=== PATIENT | male | born 2000 | race Two or more races ===

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

== ENCOUNTER 2023-11-25 17:40 | Emergency (ER) | payer OTHER, SELFPAY ==
--- NOTE | ~2023-11-25 | CT_ITS ---
EXAMINATION: CT CERVICAL SPINE WITHOUT CONTRAST CLINICAL INFORMATION: Slipped down stairs COMPARISON: None available. TECHNIQUE: Noncontrast CT of the cervical spine was performed. Multiplanar reformations were generated and reviewed This CT examination was performed using dose optimization techniques as appropriate, variously including the following: *Automated exposure control *Adjustment of mA and/or kV according to patient size (this includes techniques or standardized protocols for targeted exams where dose is matched to indication/reason for exam; i.e. extremities or head) *Use of iterative reconstruction technique DLP: 741 mGy-cm FINDINGS: Normal vertebral body heights. No evidence of acute fracture. Cervical straightening. No significant spondylolisthesis. Normal alignment of the craniocervical junction. No suspicious lytic or sclerotic osseous lesion. Intervertebral disc spaces are maintained. No significant abnormality of visualized cervical soft tissues tissues. Lung apices are clear. Imaged intracranial compartment is unremarkable. CT/CT cervical spine wo IV con IMPRESSION: No acute fracture or traumatic malalignment of the cervical spine. Electronically signed by: Humza Owen MD 11/25/2023 07:50 PM EDT
--- NOTE | ~2023-11-25 | XR_ITS ---
EXAMINATION: XR LUMBOSACRAL SPINE CLINICAL INFORMATION: Low back pain COMPARISON: None available. TECHNIQUE: Three views of the lumbosacral spine. FINDINGS: The vertebral bodies and posterior elements are normal. The disc spaces are preserved and the vertebral alignment is normal. The paraspinal soft tissues are normal. XR/XR lumbar spine 2-3V IMPRESSION: Unremarkable examination. Electronically signed by: José Lambert DO 11/25/2023 09:10 PM EDT
--- NOTE | ~2023-11-25 | XR_ITS ---
EXAMINATION: XR KNEE, RIGHT CLINICAL INFORMATION: Trauma COMPARISON: None available. TECHNIQUE: Four views of the right knee. FINDINGS: No fracture or joint effusion. Alignment is anatomic. Joint spaces are maintained. No abnormal soft tissue calcification. XR/XR knee RT 4V IMPRESSION: Normal right knee. Electronically signed by: José Lambert DO 11/25/2023 09:09 PM EDT
[2023-11-25 18:38] VITALS: BP 136/83; PULSE 76; RESP 18; TEMP 36.6; O2SAT 98; BMI 43.3
--- NOTE | 2023-11-25 18:40 | ED_ITS ---
HPI - Fall General Chief Complaint: Back Pain/Injury Stated Complaint: back pain s/p fall Time Seen by Provider: 11/25/23 22:06 Source: patient Mode of arrival: ambulatory Limitations: no limitations History of Present Illness ED Provider: Dr. Wetzel HPI Narrative: Patient is 23 has a hx of GERD and anxiety. Tonight he slipped down the stairs carrying his bicycle. No LOC states that he has neck pain mostly on the right and right knee pain Related Data Previous Rx's ?Medication ?Instructions ?Recorded naproxen 375 mg tablet 375 mg PO BID PRN pain #14 tabs 05/17/20 ondansetron HCl 4 mg tablet 4 mg PO Q8H PRN nausea and 07/18/20 (Zofran) vomiting #7 tabs omeprazole 40 mg capsule,delayed 40 mg PO DAILY #30 caps 01/04/21 release naproxen 500 mg tablet (Naprosyn) 500 mg PO BID #20 tabs 11/25/23 Allergies Allergy/AdvReac Type Severity Reaction Status Date / Time coconut Allergy Vomiting Verified 11/25/23 18:40 Review of Systems Review of Systems: Yes all other systems are reviewed and are negative Neurologic: Denies Sensory deficit (Neuro) PMFSH Past Medical History Medical History Learning disability GERD (gastroesophageal reflux disease) Anxiety and depression Post traumatic stress disorder (PTSD) ADHD (attention deficit hyperactivity disorder), combined type Family History Family History Mother No problems noted. Father No problems noted. Sister No problems noted. Sister No problems noted. Social History Social History Household Members Other:: lives with mom and sisters and fiance Alcohol intake: never Advance Directives: No Advance Directives Information Provided: No Do you have a plan to hurt others: No Plan Physical Exam Vital Signs: Vital Signs: Last Vital Signs Temp 97.8 F 11/25/23 22:27 Pulse 69 11/25/23 22:27 Resp 16 11/25/23 22:27 BP 127/77 11/25/23 22:27 Pulse Ox 96 11/25/23 22:27 O2 Del Method Room Air 11/25/23 22:27 BMI result Body Mass Index 43.3 Const: General: healthy appearing Nutritional Appearance: obese Orientation/consciousness: oriented to person and patient oriented x3 Limitations: no limitations HEENT: Head: Yes normal to inspection Ears: external ears normal General nose exam: Normal external nose present Mouth: Normal oral and palatal mucosa present and oropharynx normal Throat: Yes posterior oropharynx normal Eyes: General: appearance normal, both eyes and all related structures Neck: Other: slight tenderness to right trapezius Neck: Yes normal visual inspection Chest: Chest palpation & inspection: normal inspection of the chest Resp: Auscultation: clear to auscultation bilaterally Cardio: Jugular venous distension: no JVD Rate: regular rate Rhythm: regular rhythm Heart sounds: S1 normal heart sound present and S2 normal heart sound present GI: Inspection: Yes normal to inspection Palpation (GI): Soft to palpation, nontender and No hepatosplenomegaly present Auscultation: normal bowel sounds : General: Yes no CVA tenderness Back/Spine/Pelvis: Back: no CVA tenderness Skin: General skin exam: no rashes or lesions noted Neuro: General: oriented to person and patient oriented x3 Cranial nerves: Yes CN's II-XII intact bilaterally Motor exam (neuro): 5/5 motor strength p resent throughout Sensory Exam: No Sensory deficit (Neuro) Extrem: Other: knee FROM no effusion or ecchymosis Psych: Appearance: grossly normal Course Course Course Narrative: This is a Rapid Medical Exam performed in triage by Cristin Ruggiero PA-C. Full HPI, ROS and PE to be performed by primary ED provider. 23 yo M w/pmhx GERD, ADHD presenting to the ED c/o right knee pain, neck pain and low back pain s/p mechanical slip & fall down about 10 stairs at 5PM. States was caring his bike down the stairs when bike fell, hitting knee which caused him to fall down half a flight. denies head trauma or LOC. Has been ambulatory since incident PE: Right knee with mild swelling and ttp. +erythema to low back w/midline & paraspinal ttp Plan: XRs, pain control Reevaluation(s) Reevaluation #1: CT of cervical spine normal, xray of knee normal will dc on NSAIDs Time: 22:33 Medical Decision Making Differential Diagnosis Differential Diagnoses: The differential diagnosis associated with the presentation includes (Cervical spine fracture, neck strain, knee fracture, patella dislocation, knee strain) Admission/Observation Consideration of admission/observation: Escalation of care including admission/observation considered (upon arrival admission was considered) Independent Interpretation I performed an independent interpretation of an: Plain X-Ray (knee no fracture or dislocation) and CT Scan (cervical spine: no fracture or subluxation) Discharge Plan Discharge Clinical Impression: Back strain, Cervical strain, Contusion of knee, Strain of lumbar region Patient Disposition: Home, Self-Care Instructions: Muscle Strain (ED), Acute Low Back Pain (ED), Contusion in Adults (ED), Cervical Sprain (ED), R.I.C.E. Treatment (ED) Prescriptions: New naproxen [Naprosyn] 500 mg tablet 500 mg PO BID Qty: 20 0RF No Action omeprazole 40 mg capsule,delayed release(DR/EC) 40 mg PO DAILY Qty: 30 0RF ondansetron HCl [Zofran] 4 mg tablet 4 mg PO Q8H PRN (Reason: nausea and vomiting) Qty: 7 0RF naproxen 375 mg tablet 375 mg PO BID PRN (Reason: pain) Qty: 14 0RF Rx Instructions: take one tab po q12 hrs x 3 days then q12 hrs prn pain Referrals: Physician,None [Primary Care Provider] - 1 week Stand Alone Forms: Work/School Release Print Language: Khmer
[2023-11-25 21:24] VITALS: BP 125/71; PULSE 65; RESP 16; TEMP 36.1; O2SAT 100
--- NOTE | 2023-11-25 21:24 | PC.NURSE ---
no answer for triage reassement
[2023-11-25 22:27] VITALS: BP 127/77; PULSE 69; RESP 16; TEMP 36.6; O2SAT 96
[2023-11-25] MEDS: Ibuprofen 800 MG TABLET PO (22:57)
[2023-11-25 23:04] VITALS: BP 127/77; PULSE 69; RESP 16; TEMP 36.6; O2SAT 96
== END 2023-11-25 23:26 | disposition home or self-care (01) ==
PROVIDERS: Emergency Provider Emergency Medicine
DX: S16.1XXA Strain of muscle, fascia and tendon at neck level, initial encounter (principal); S39.012A Strain of muscle, fascia and tendon of lower back, initial encounter; S80.01XA Contusion of right knee, initial encounter; W10.8XXA Fall (on) (from) other stairs and steps, initial encounter; Y93.89 Activity, other specified; Y92.008 Other place in unspecified non-institutional (private) residence as the place of occurrence of the external cause; Y99.9 Unspecified external cause status
CPT/HCPCS: 72100; 72125; 73564; 99284